=== PATIENT | male | born 1985 | race Native Hawaiian/Other Pacific Islander ===

== ENCOUNTER 2017-02-26 20:46 | Emergency (ER) | payer OTHER ==
[~2017-02-26] VITALS: Ht 172.7 cm; Wt 80.7 kg
== END 2017-02-26 22:11 | disposition home or self-care (01) ==
LOC: ED 20:46
DX: S30.0XXA Contusion of lower back and pelvis, initial encounter (principal); S39.012A Strain of muscle, fascia and tendon of lower back, initial encounter; V85.0XXA Driver of special construction vehicle injured in traffic accident, initial encounter
CPT/HCPCS: 99283

== ENCOUNTER 2021-09-29 17:28 | Emergency (ER) | payer BC ==
[~2021-09-29] VITALS: Ht 175.3 cm; Wt 79.4 kg
[2021-09-29 19:40] VITALS: BP 134/86; TEMP 99.3
== END 2021-09-29 19:40 | disposition home or self-care (01) ==
LOC: ED 17:28
DX: S63.693A Other sprain of left middle finger, initial encounter (principal); S60.132A Contusion of left middle finger with damage to nail, initial encounter; W22.8XXA Striking against or struck by other objects, initial encounter; Y92.89 Other specified places as the place of occurrence of the external cause
CPT/HCPCS: 96372; 99283; J1885

== ENCOUNTER 2023-06-18 16:30 | Outpatient (CLI) | payer OTHER | END 2023-06-18 19:32 | disposition home or self-care (01) | LOC: RAD 16:30 | PROVIDERS: ATTEND Family Medicine | DX: Z02.1 Encounter for pre-employment examination (principal) ==